=== PATIENT | male | born 1955 | race Caucasian/White ===

== ENCOUNTER 2021-05-08 05:34 | Emergency (ER) | payer MEDICARE, BC ==
--- NOTE | 2021-05-08 05:59 | EDM.PDOC ---
ED HPI GENERAL MEDICAL PROBLEM - General Chief Complaint: ENT Problem Stated Complaint: IMPACTED EAR Time Seen by Provider: 05/08/21 05:39 - History of Present Illness INITIAL COMMENTS - FREE TEXT/NARRATIVE: 65-year-old male presenting with concern for left ear cerumen impaction. Patient states that he has a longstanding history of intermittent cerumen impactions related to the type of wax that he has. He tries to keep up with it but a couple times a year he ends up needing to present for cerumen impaction. Over the last day he has had worsening fullness and pressure his tried to clean it out especially could but the symptoms did not zahira. No neck pain no jaw pain no fever no tinnitus otherwise feels well. - Related Data Home Meds: Home Meds Ofloxacin 10 ml .XX DAILY 7 Days #1 bottle 05/08/21 [Rx] ED ROS GENERAL - Review of Systems Review Of Systems: See Below Free Text/Narrative/Comment: General: No fever. Eyes: No vision problems. ENT: Per HPI Neck: No neck stiffness. Neurologic: No headache. ED EXAM, GENERAL - Physical Exam Exam: See Below Free Text/Narrative:: General Appearance: No acute distress, appears comfortable Skin: No rash HEENT: Normocephalic/atraumatic, sclera anicteric, mucous membranes moist, left ear with cerumen impaction no auricular tenderness swelling or erythema no mastoid tenderness ear canal was gently irrigated with room temperature sterile water. On reinspection the tympanic membrane was intact. There is some erythema and debris within the ear canal that is concerning for early otitis externa. Neck: Normal range of motion Psychiatric: Appropriate, cooperative Departure - Departure Time of Disposition: 05:54 Disposition: Home, Self-Care 01 Condition: Good Clinical Impression: Cerumen impaction, Otitis externa - Discharge Information *PRESCRIPTION DRUG MONITORING PROGRAM REVIEWED*: Not Applicable *COPY OF PRESCRIPTION DRUG MONITORING REPORT IN PATIENT ZI: Not Applicable Prescriptions: Ofloxacin 10 ml .XX DAILY 7 Days #1 bottle Instructions: Earwax Buildup, Adult, Otitis Externa, Ear Irrigation Referrals: PCP,Not In Area [Primary Care Provider] - Additional Instructions: We were able to get out the impacted earwax from your left ear. It does appear that an early external ear canal infection has started to setting and for this reason a prescription for antibiotic drops have been sent to the pharmacy. The following information is given to patients seen in the emergency department who are being discharged to home. This information is to outline your options for follow-up care. We provide all patients seen in our emergency department with a follow-up referral. The need for follow-up, as well as the timing and circumstances, are variable depending upon the specifics of your emergency department visit. If you don't have a primary care physician on staff, we will provide you with a referral. We always advise you to contact your personal physician following an emergency department visit to inform them of the circumstance of the visit and for follow-up with them and/or the need for any referrals to a consulting specialist. The emergency department will also refer you to a specialist when appropriate. This referral assures that you have the opportunity for follow-up care with a specialist. All of these measure are taken in an effort to provide you with optimal care, which includes your follow-up. Under all circumstances we always encourage you to contact your private physician who remains a resource for coordinating your care. When calling for follow-up care, please make the office aware that this follow-up is from your recent emergency room visit. If for any reason you are refused follow-up, please contact the [facility] Emergency Department at and asked to speak to the emergency department charge nurse. - Assessment/Plan Assessment:: 67-year-old male presenting with left ear cerumen impaction complicated by otitis externa. After irrigation the ear canal is widely patent and there is no indication for placement of a wick. Tympanic membrane is intact no sign of otitis media no sign of mastoiditis no sign of auricular cellulitis. Patient prescribed a course of ofloxacin otic drops. Encouraged to follow-up with his regular doctor. The following information is given to patients seen in the emergency department who are being discharged to home. This information is to outline your options for follow-up care. We provide all patients seen in our emergency department with a follow-up referral. The need for follow-up, as well as the timing and circumstances, are variable depending upon the specifics of your emergency department visit. If you don't have a primary care physician on staff, we will provide you with a referral. We always advise you to contact your personal physician following an emergency department visit to inform them of the circumstance of the visit and for follow-up with them and/or the need for any referrals to a consulting specialist. The emergency department will also refer you to a specialist when appropriate. This referral assures that you have the opportunity for follow-up care with a specialist. All of these measure are taken in an effort to provide you with optimal care, which includes your follow-up. Under all circumstances we always encourage you to contact your private physician who remains a resource for coordinating your care. When calling for follow-up care, please make the office aware that this follow-up is from your recent emergency room visit. If for any reason you are refused follow-up, please contact the [facility] Emergency Department at and asked to speak to the emergency department charge nurse.
== END 2021-05-08 06:07 | disposition home or self-care (01) ==
LOC: MW.ED 05:34
DX: H61.22 Impacted cerumen, left ear (principal); H60.92 Unspecified otitis externa, left ear
CPT/HCPCS: 69209; 99282-25